=== PATIENT | female | born 1990 | race African-American/Black ===

== ENCOUNTER 2016-11-09 16:22 | Emergency (ER) | payer BC ==
[~2016-11-09] VITALS: Ht 157.5 cm; Wt 56.7 kg
[2016-11-09 16:31] VITALS: BP 132/87
[2016-11-09] MEDS: SODIUM CHLORIDE 0.9% 1,000 ML IVB ONE (16:34)
[2016-11-09] MEDS: KETOROLAC TROMETH 30 MG/ML 1ML VIAL IV ONE (16:41)
[2016-11-09 17:33] LABS: Basophils # (auto) 0 uL; Basophils % (auto) 0.6 % (0.0-2.0); Eosinophils # (auto) 0.3 uL; Eosinophils % (auto) 9.5 % (0.0-7.0); Hematocrit 38.3 % (36.0-46.0); Hemoglobin 12.8 g/dL (12.2-16.2); Lymphocytes # (auto) 1.2 uL; Lymphocytes % (auto) 33.6 % (10.0-50.0); Mean Corpuscular Hemoglobin 28.7 pg (28.0-32.0); Mean Corpuscular Hgb Conc. 33.3 g/dL (32.0-36.0); Mean Corpuscular Volume 86.2 fL (80.0-100.0); Mean Platelet Volume 8.9 fL (7.4-10.4); Monocytes # (auto) 0.5 uL; Monocytes % (auto) 12.9 % (0.0-12.0); Neutrophils # (auto) 1.6 uL; Neutrophils % (auto) 43.4 % (37.0-80.0); Platelet Count (auto) 284 10^3/uL (140-450); Red Cell Distribution Width 13.9 % (11.6-16.0); White Blood Cell 3.7 10^3/uL (4.4-10.8)
[2016-11-09 17:39] LABS: Albumin 4.3 g/dL (3.4-5.0); Bilirubin, Total 1.3 mg/dL (0.2-1.0); Calcium 9.1 mg/dL (8.5-10.1); Potassium 3.8 mmol/L (3.5-5.1); Total Protein 7.9 g/dL (6.4-8.2)
== END 2016-11-09 19:17 | disposition home or self-care (01) ==
LOC: EDBD 16:22 → EDUNIT# 16:22 → ER 16:25 → EDBD 16:25 → ER 19:16
DX: S20.219A Contusion of unspecified front wall of thorax, initial encounter (principal); V43.52XA Car driver injured in collision with other type car in traffic accident, initial encounter; Y93.9 Activity, unspecified; Y92.89 Other specified places as the place of occurrence of the external cause; Y99.8 Other external cause status
CPT/HCPCS: 36415; 71020; 80053; 85025; 93005; 94761; 96361; 96374; 99285; J1885